=== PATIENT | male | born 1935 | race Caucasian/White ===

== ENCOUNTER 2017-10-09 16:18 | Inpatient (IN) ==
--- NOTE | 2017-10-09 16:44 | Emergency Department Note ---
Disposition Clinical Impression: Generalized weakness Disposition: Admitted As Inpatient Condition: Fair Referrals: Himanshu Rodrigues, POWERTRAIN ENGINEER [Primary Care Provider] - Forms: ED Satisfaction Letter General Adult HPI - General Chief complaint: ED Weakness Stated complaint: PVCs Time Seen by Provider: 10/09/17 16:24 Source: patient Nursing Notes Reviewed: Yes Vital Signs Reviewed: Yes - History of Present Illness HPI Narrative: 81 yo M c PMHx of CAD, Anxiety, HTN, stage I lung CA s/p lobectomy, Vertigo, who reports to the ED c/o generalized weakness x 1 month. Patient reports that he had been feeling generally weak since August. He was seen at Urgent care this past Thursday and was worked up with CBC, BMP, and CXR all of which was unremarkable. Patient went to PCP today to follow up from that urgent care visit and because patient continues to feel weak. EKG was performed at PCPs office which showed PVCs. Patient is very anxious per and she reports his nerves have been shot as of late. He saw his spychiatrist around the time the weakeness began at that time his alprazolam and paxil prescriptions were increased. Patient is also being treated for Vertigo. Patient was started on meclazine, but med made him tired so only took once. Has been treat vertigo with PT with much improvement. Patient denies fever, chest pain, abd pain, N, V , D. Patient has issues with constipation and is on a stool softner. Patient denies numbness tingling, focal weakness. Patient does reports some dysuria occasionally. Onset (ago): week(s) (4) Pain Scale: 0 - Related Data Home Medications Medication Instructions Recorded Confirmed Clopidogrel [Plavix] 75 mg PO DAILY 12/21/15 04/28/17 Dorzolamide/Timolol [Cosopt] 1 drop BOTH EYES BID 12/21/15 04/28/17 Finasteride [Proscar] 5 mg PO DAILY 12/21/15 04/28/17 Ketoconazole 2% CRM [Nizoral Cream] 1 appl TP BID PRN 12/21/15 04/28/17 Multivit-Min/Folic/Vit K/Lycop [Hm 1 each PO DAILY 12/21/15 04/28/17 Mens 50 Plus Adv One Daily] Omeprazole [PriLOSEC] 40 mg PO DAILY 12/21/15 04/28/17 Pravastatin Sodium [Pravachol] 40 mg PO DAILY 12/21/15 04/28/17 Tamsulosin [Flomax] 0.4 mg PO DAILY 12/21/15 04/28/17 ALPRAZolam [Xanax 0.5 MG Tablet] 0.25 mg PO BID PRN 08/26/16 04/28/17 Aripiprazole [Abilify] 5 mg PO DAILY 08/26/16 04/28/17 Echinacea 760 mg PO BID PRN 08/26/16 04/28/17 Ferrous Sulfate [Iron] 325 mg PO BID 08/26/16 04/28/17 Nitroglycerin [Nitrostat] 0.4 mg SL PRN PRN 08/26/16 04/28/17 Paroxetine [Paxil] 20 mg PO DAILY 08/26/16 04/28/17 Sennosides [Senna] 8.6 mg PO BID 08/26/16 04/28/17 Vit A/Vit C/Vit E/Zinc/Copper 1 each PO BID 08/26/16 04/28/17 [Preservision Areds Tablet] Aspirin 81 mg PO DAILY 11/20/16 04/28/17 Docusate Sodium [Dok] 100 mg PO BID PRN 11/20/16 04/28/17 Oxygen 2 each NS HS 11/20/16 04/28/17 Hydrochlorothiazide [Microzide] 12.5 mg PO 3XW 04/28/17 04/28/17 Previous Rx's Medication Instructions Recorded Mirtazapine [Remeron] 30 mg PO HS #30 tablet 12/22/15 Allergies Allergy/AdvReac Type Severity Reaction Status Date / Time No Known Allergies Allergy Verified 10/09/17 16:23 Review of Systems: As Per HPI Past Medical History - Past Medical History Medical history: Reports: cancer, coronary artery disease, GERD, hypertension, myocardial infarction Psychiatric history: Reports: anxiety - Social History Smoking Status: Former smoker Smokeless Tobacco Status: No Alcohol use: Reports: none Drug use: Reports: none Physical Exam - General Limitations: no limitations General appearance: alert, in no apparent distress - Head Head exam: atraumatic, normocephalic - Eye Eye exam: Present: PERRL, EOMI, nystagmus - ENT ENT exam: normal oropharynx, mucous membranes moist - Neck Neck exam: Present: full ROM, trachea midline - Chest Chest inspection: Present: symmetric chest wall rise. Absent: tenderness - Respiratory Respiratory exam: Present: normal lung sounds bilaterally. Absent: respiratory distress - Cardiovascular Cardiovascular exam: Present: regular rate, normal heart sounds - Abdominal Exam Abdominal exam: Present: soft, Non-Tender - Extremities Exam Extremities exam: Present: full ROM, tenderness - Neurological Exam Neurological exam: Present: alert, oriented X3, CN II-XII intact, motor sensory deficit - Psychiatric Psychiatric exam: Present: anxious - Skin Skin exam: Present: warm, dry Course Course Narrative: Will work up patient for PVCs and generalized weakness. CBC, BMP. TSH, Troponin, CXR, UA. - Reevaluation(s) Reevaluation #1: All lab work and CXR are normal. UA still pending. Reevaluation #2: UA normal, patient still feels weak. Not able to manage at home. - Consultations Consultation #1: Discussed case with admitting hospitalist who agreed to accept the patient. Vital Signs Temperature 97.8 F 10/09/17 16:19 Pulse Rate 81 10/09/17 16:19 Respiratory Rate 16 10/09/17 16:19 Blood Pressure 109/77 10/09/17 16:19 O2 Sat by Pulse Oximetry 96 10/09/17 16:19 Temperature 97.8 F 10/09/17 16:19 Pulse Rate 69 10/09/17 18:22 Respiratory Rate 18 10/09/17 18:22 Blood Pressure 160/96 10/09/17 18:22 O2 Sat by Pulse Oximetry 96 10/09/17 18:22 Oxygen Delivery Oxygen Delivery Room Air Medical Decision Making - [facility] Narrative Medical decision making narrative: Patient feeling generalized weakness for about a month. Concern for cardiac cause with extensive caridac history and new onset PVCs. Will admit for further work up. Patient of Dr. Mills Cardiology. - Lab Data Lab results reviewed: Yes I reviewed the patient's lab results. Result diagrams: 10/09/17 16:28 10/09/17 16:28 Lab Results 10/09/17 10/09/17 10/09/17 Range/Units 16:28 16:28 16:28 WBC 5.2 (4.3-11.1) K/mcL RBC 4.10 L (4.19-5.50) M/mcL Hgb 13.2 (12.9-16.9) g/dL Hct 39.5 (37.5-50.1) % MCV 96.3 (83.0-100.0) fL MCH 32.2 (28.0-33.3) pg MCHC 33.4 (31.6-35.5) g/dL RDW 13.0 (11.5-14.5) % Plt Count 179 (140-400) K/mcL MPV 9.5 (9.4-12.4) fL Immature Gran % 0.4 (0-4) % Seg Neutrophils % 67.5 % Lymphocytes % 22.7 % Monocytes % 6.7 % Eosinophils % 1.9 % Basophils % 0.8 % Neutrophils # 3.5 (1.6-8.9) K/mcL Lymphocytes # 1.2 (0.6-4.6) K/mcL Monocytes # 0.4 (0.0-1.3) K/mcL Eosinophils # 0.1 (0.0-0.6) K/mcL Basophils # 0.0 (0.0-0.2) K/mcL PT 11.5 (9.4-12.1) Seconds INR 1.1 APTT 28.8 (26.0-36.0) Seconds Sodium 139 (136-145) mEq/L Potassium 3.6 (3.5-5.1) mEq/L Chloride 106 (98-107) mEq/L Carbon Dioxide 25 (23-29) mEq/L BUN 13 (8-23) mg/dL Creatinine 0.69 L (0.70-1.30) mg/dL Est GFR ( Amer) > 60 (> 60) Est GFR (Non-Af Amer) > 60 (> 60) BUN/Creatinine Ratio 19 (6-26) Glucose 125 H (70-105) mg/dL Calculated Osmolality 290 (280-300) Calcium 9.0 (8.6-10.3) mg/dL Troponin I < 0.03 (< 0.04) ng/mL TSH 1.123 (0.340-5.600) mcIU/mL Urine Color (Yellow) Urine Clarity (Clear) Urine pH (5.0-8.0) pH Units Ur Specific [place] (1.010-1.025) Urine Protein (Neg-Trace) mg/dL Urine Glucose (UA) (Normal) mg/dL Urine Ketones (Negative) mg/dL Urine Blood (Negative) Urine Nitrite (Negative) Urine Bilirubin (Negative) Urine Urobilinogen (Normal) mg/dL Ur Leukocyte Esterase (Negative) Ur Culture Indicated? (NO) 10/09/17 Range/Units 19:08 WBC (4.3-11.1) K/mcL RBC (4.19-5.50) M/mcL Hgb (12.9-16.9) g/dL Hct (37.5-50.1) % MCV (83.0-100.0) fL MCH (28.0-33.3) pg MCHC (31.6-35.5) g/dL RDW (11.5-14.5) % Plt Count (140-400) K/mcL MPV (9.4-12.4) fL Immature Gran % (0-4) % Seg Neutrophils % % Lymphocytes % % Monocytes % % Eosinophils % % Basophils % % Neutrophils # (1.6-8.9) K/mcL Lymphocytes # (0.6-4.6) K/mcL Monocytes # (0.0-1.3) K/mcL Eosinophils # (0.0-0.6) K/mcL Basophils # (0.0-0.2) K/mcL PT (9.4-12.1) Seconds INR APTT (26.0-36.0) Seconds Sodium (136-145) mEq/L Potassium (3.5-5.1) mEq/L Chloride (98-107) mEq/L Carbon Dioxide (23-29) mEq/L BUN (8-23) mg/dL Creatinine (0.70-1.30) mg/dL Est GFR ( Amer) (> 60) Est GFR (Non-Af Amer) (> 60) BUN/Creatinine Ratio (6-26) Glucose (70-105) mg/dL Calculated Osmolality (280-300) Calcium (8.6-10.3) mg/dL Troponin I (< 0.04) ng/mL TSH (0.340-5.600) mcIU/mL Urine Color Yellow (Yellow) Urine Clarity Clear (Clear) Urine pH 7.0 (5.0-8.0) pH Units Ur Specific [place] 1.012 (1.010-1.025) Urine Protein Negative (Neg-Trace) mg/dL Urine Glucose (UA) Normal (Normal) mg/dL Urine Ketones Negative (Negative) mg/dL Urine Blood Negative (Negative) Urine Nitrite Negative (Negative) Urine Bilirubin Negative (Negative) Urine Urobilinogen Normal (Normal) mg/dL Ur Leukocyte Esterase Negative (Negative) Ur Culture Indicated? NO (NO) - Radiology Data Radiology results reviewed: Yes I reviewed the patient's radiology results.
[2017-10-09 17:17] LABS: Basophils % 0.8 %; Eosinophils # 0.1 K/mcL (0.0-0.6); Eosinophils % 1.9 %; Hematocrit 39.5 % (37.5-50.1); Hemoglobin 13.2 g/dL (12.9-16.9); Immature Granulocytes % 0.4 % (0-4); Lymphocytes # 1.2 K/mcL (0.6-4.6); Lymphocytes % 22.7 %; Mean Corpuscular HGB Conc 33.4 g/dL (31.6-35.5); Mean Corpuscular Hemoglobin 32.2 pg (28.0-33.3); Mean Corpuscular Volume 96.3 fL (83.0-100.0); Mean Platelet Volume 9.5 fL (9.4-12.4); Monocytes # 0.4 K/mcL (0.0-1.3); Monocytes % 6.7 %; Neutrophils # 3.5 K/mcL (1.6-8.9); Platelet Count 179 K/mcL (140-400); Segmented Neutrophils % 67.5 %
[2017-10-09 17:22] LABS: INR 1.1; Prothrombin Time 11.5 Seconds (9.4-12.1)
[2017-10-09 17:25] LABS: Activated Partial Thrombo Time 28.8 Seconds (26.0-36.0)
[2017-10-09 17:39] LABS: Troponin I < 0.03 ng/mL (< 0.04)
[2017-10-09 17:40] LABS: BUN/Creatinine Ratio 19 (6-26); Blood Urea Nitrogen 13 mg/dL (8-23); Carbon Dioxide 25 mEq/L (23-29); Chloride 106 mEq/L (98-107); Glucose 125 mg/dL (70-105); Osmolality,Calculated 290 (280-300); Potassium 3.6 mEq/L (3.5-5.1); Sodium 139 mEq/L (136-145); eGFR For African Americans > 60 (> 60); eGFR For Non-African Americans > 60 (> 60)
[2017-10-09 17:52] LABS: Thyroid Stimulating Hormone 1.123 mcIU/mL (0.340-5.600)
[2017-10-09 19:39] LABS: Bilirubin,Urine Negative (Negative); Blood,Urine Negative (Negative); Clarity,Urine Clear (Clear); Color,Urine Yellow (Yellow); Glucose,Urine (UA) Normal (Normal); Ketones,Urine Negative (Negative); Leukocyte Esterase,Urine Negative (Negative); Nitrite,Urine Negative (Negative); Protein,Urine Negative (Neg-Trace); Specific Gravity,Urine 1.012 (1.010-1.025); Urobilinogen,Urine Normal (Normal)
--- NOTE | 2017-10-09 22:05 | Emergency Department Note ---
Disposition Clinical Impression: Generalized weakness Disposition: Admitted As Inpatient Condition: Fair Referrals: Himanshu Rodrigues, PROJECTS MANAGER [Primary Care Provider] - Weakness HPI - General Chief complaint: ED Weakness Stated complaint: PVCs Time Seen by Provider: 10/09/17 16:24 Source: patient Limitations: no limitations - History of Present Illness Pain Scale: 0 - Related Data Home Medications Medication Instructions Recorded Confirmed Clopidogrel [Plavix] 75 mg PO DAILY 12/21/15 10/09/17 Finasteride [Proscar] 5 mg PO DAILY 12/21/15 10/09/17 Ketoconazole 2% CRM [Nizoral Cream] 1 appl TP BID PRN 12/21/15 10/09/17 Multivit-Min/Folic/Vit K/Lycop [Hm 1 each PO DAILY 12/21/15 10/09/17 Mens 50 Plus Adv One Daily] Omeprazole [PriLOSEC] 40 mg PO DAILY 12/21/15 10/09/17 Pravastatin Sodium [Pravachol] 40 mg PO DAILY 12/21/15 10/09/17 ALPRAZolam [Xanax 0.5 MG Tablet] 0.5 mg PO QAM 08/26/16 10/09/17 Aripiprazole [Abilify] 5 mg PO DAILY 08/26/16 10/09/17 Echinacea 760 mg PO BID PRN 08/26/16 10/09/17 Ferrous Sulfate [Iron] 325 mg PO BID 08/26/16 10/09/17 Nitroglycerin [Nitrostat] 0.4 mg SL PRN PRN 08/26/16 10/09/17 Paroxetine [Paxil] 30 mg PO DAILY 08/26/16 10/09/17 Sennosides [Senna] 8.6 mg PO BID 08/26/16 10/09/17 Vit A/Vit C/Vit E/Zinc/Copper 1 each PO BID 08/26/16 10/09/17 [Preservision Areds Tablet] Aspirin 81 mg PO DAILY 11/20/16 10/09/17 Docusate Sodium [Dok] 100 mg PO BID PRN 11/20/16 10/09/17 Oxygen 2 each NS HS 11/20/16 10/09/17 Hydrochlorothiazide [Microzide] 12.5 mg PO 3XW 04/28/17 10/09/17 ALPRAZolam [Xanax 0.25 MG Tablet] 0.25 mg PO DAILY PRN 10/09/17 10/09/17 Dorzolamide [Trusopt] 1 drop BOTH EYES TID 10/09/17 10/09/17 Tamsulosin [Flomax] 0.4 mg PO DAILY 10/09/17 10/09/17 Previous Rx's Medication Instructions Recorded Mirtazapine [Remeron] 30 mg PO HS #30 tablet 12/22/15 Allergies Allergy/AdvReac Type Severity Reaction Status Date / Time No Known Allergies Allergy Verified 10/09/17 16:23 Past Medical History - Past Medical History Medical history: Reports: cancer, coronary artery disease, GERD, hypertension, myocardial infarction Psychiatric history: Reports: anxiety - Social History Smoking Status: Former smoker Smokeless Tobacco Status: No Alcohol use: Reports: none Drug use: Reports: none Physical Exam - General Limitations: no limitations General appearance: alert, in no apparent distress Course Vital Signs Temperature 97.8 F 10/09/17 16:19 Pulse Rate 81 10/09/17 16:19 Respiratory Rate 16 10/09/17 16:19 Blood Pressure 109/77 10/09/17 16:19 O2 Sat by Pulse Oximetry 96 10/09/17 16:19 Temperature 98 F 10/09/17 21:47 Pulse Rate 68 10/09/17 21:47 Respiratory Rate 18 10/09/17 21:47 Blood Pressure 119/71 10/09/17 21:47 O2 Sat by Pulse Oximetry 95 10/09/17 21:47 Oxygen Delivery Oxygen Delivery Room Air Weakness - Lab Data Result diagrams: 10/09/17 16:28 10/09/17 16:28 Lab Results 10/09/17 10/09/17 10/09/17 Range/Units 16:28 16:28 16:28 WBC 5.2 (4.3-11.1) K/mcL RBC 4.10 L (4.19-5.50) M/mcL Hgb 13.2 (12.9-16.9) g/dL Hct 39.5 (37.5-50.1) % MCV 96.3 (83.0-100.0) fL MCH 32.2 (28.0-33.3) pg MCHC 33.4 (31.6-35.5) g/dL RDW 13.0 (11.5-14.5) % Plt Count 179 (140-400) K/mcL MPV 9.5 (9.4-12.4) fL Immature Gran % 0.4 (0-4) % Seg Neutrophils % 67.5 % Lymphocytes % 22.7 % Monocytes % 6.7 % Eosinophils % 1.9 % Basophils % 0.8 % Neutrophils # 3.5 (1.6-8.9) K/mcL Lymphocytes # 1.2 (0.6-4.6) K/mcL Monocytes # 0.4 (0.0-1.3) K/mcL Eosinophils # 0.1 (0.0-0.6) K/mcL Basophils # 0.0 (0.0-0.2) K/mcL PT 11.5 (9.4-12.1) Seconds INR 1.1 APTT 28.8 (26.0-36.0) Seconds Sodium 139 (136-145) mEq/L Potassium 3.6 (3.5-5.1) mEq/L Chloride 106 (98-107) mEq/L Carbon Dioxide 25 (23-29) mEq/L BUN 13 (8-23) mg/dL Creatinine 0.69 L (0.70-1.30) mg/dL Est GFR ( Amer) > 60 (> 60) Est GFR (Non-Af Amer) > 60 (> 60) BUN/Creatinine Ratio 19 (6-26) Glucose 125 H (70-105) mg/dL Calculated Osmolality 290 (280-300) Calcium 9.0 (8.6-10.3) mg/dL Magnesium 2.0 (1.6-2.6) mg/dL Troponin I < 0.03 (< 0.04) ng/mL TSH 1.123 (0.340-5.600) mcIU/mL Urine Color (Yellow) Urine Clarity (Clear) Urine pH (5.0-8.0) pH Units Ur Specific [place] (1.010-1.025) Urine Protein (Neg-Trace) mg/dL Urine Glucose (UA) (Normal) mg/dL Urine Ketones (Negative) mg/dL Urine Blood (Negative) Urine Nitrite (Negative) Urine Bilirubin (Negative) Urine Urobilinogen (Normal) mg/dL Ur Leukocyte Esterase (Negative) Ur Culture Indicated? (NO) 10/09/17 Range/Units 19:08 WBC (4.3-11.1) K/mcL RBC (4.19-5.50) M/mcL Hgb (12.9-16.9) g/dL Hct (37.5-50.1) % MCV (83.0-100.0) fL MCH (28.0-33.3) pg MCHC (31.6-35.5) g/dL RDW (11.5-14.5) % Plt Count (140-400) K/mcL MPV (9.4-12.4) fL Immature Gran % (0-4) % Seg Neutrophils % % Lymphocytes % % Monocytes % % Eosinophils % % Basophils % % Neutrophils # (1.6-8.9) K/mcL Lymphocytes # (0.6-4.6) K/mcL Monocytes # (0.0-1.3) K/mcL Eosinophils # (0.0-0.6) K/mcL Basophils # (0.0-0.2) K/mcL PT (9.4-12.1) Seconds INR APTT (26.0-36.0) Seconds Sodium (136-145) mEq/L Potassium (3.5-5.1) mEq/L Chloride (98-107) mEq/L Carbon Dioxide (23-29) mEq/L BUN (8-23) mg/dL Creatinine (0.70-1.30) mg/dL Est GFR ( Amer) (> 60) Est GFR (Non-Af Amer) (> 60) BUN/Creatinine Ratio (6-26) Glucose (70-105) mg/dL Calculated Osmolality (280-300) Calcium (8.6-10.3) mg/dL Magnesium (1.6-2.6) mg/dL Troponin I (< 0.04) ng/mL TSH (0.340-5.600) mcIU/mL Urine Color Yellow (Yellow) Urine Clarity Clear (Clear) Urine pH 7.0 (5.0-8.0) pH Units Ur Specific [place] 1.012 (1.010-1.025) Urine Protein Negative (Neg-Trace) mg/dL Urine Glucose (UA) Normal (Normal) mg/dL Urine Ketones Negative (Negative) mg/dL Urine Blood Negative (Negative) Urine Nitrite Negative (Negative) Urine Bilirubin Negative (Negative) Urine Urobilinogen Normal (Normal) mg/dL Ur Leukocyte Esterase Negative (Negative) Ur Culture Indicated? NO (NO) Attestation Statement - Attestation Attestation: I, Michael Maurer, examined this patient and my medical decision-making was reviewed with the ACCOUNTANT CONTROLLER/PA/Advanced Practice Nurse/Resident Physician. I agree with the documented findings, disposition and treatment plan as described except to the extent set forth below. 81-year-old male presents emergency Department with concerns of increased weakness over the past 1-2 weeks. Patient was initially seen at an urgent care , had a urinalysis that was negative for infection as well as laboratory values which were largely within normal limits. Patient was reevaluated by his primary care provider who recommended the patient be evaluated in the emergency department for further evaluation of his weakness. Patient states he becomes extremely dyspneic with minimal exertion. He had similar symptoms prior to his previous heart catheterization. Patient follows Dr. Mills for cardiology. Patient had an negative initial troponin and EKG not show evidence of STEMI. Patient will be admitted to the hospitalist for further care and evaluation of his weakness and for further evaluation of cardiac disease.
[2017-10-10] MEDS ORDERED: Naloxone 0.4 MG/ML INJ IVP PRN (01:57)
[2017-10-10] MEDS ORDERED: Acetaminophen 325 MG TABLET PO PRN (01:57)
[2017-10-10] MEDS ORDERED: Nitroglycerin 0.4 MG TAB.SUBL SL PRN (02:04)
[2017-10-10] MEDS ORDERED: ALPRAZolam 0.25 MG TABLET PO PRN (02:04)
[2017-10-10] MEDS ORDERED: ALPRAZolam 0.5 MG TABLET PO SCH (02:05)
[2017-10-10] MEDS ORDERED: OXYGEN NS SCH (02:15)
[2017-10-10] MEDS ORDERED: Mirtazapine 15 MG TABLET PO SCH (02:15)
--- NOTE | 2017-10-10 02:15 | Internal Med History&Physical ---
<TalibJaninefrances - Last Filed: 10/10/17 05:50> Date of Encounter: 10/10/17 Time of Encounter: 02:13 Internal Medicine - H&P: HPI Chief complaint: weakness Admitted From: Emergency Dept Plans for Post Hospital Care: Home History of present illness: Mr. 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 Patient arrived to the ED with his with chief complaint of generalized weakness that started a few weeks ago. She states that he saw his PCP, who made changes to his medications. Patient continued to feel week despite outpatient physical therapy. Today patient and his went urgent care where they did and EKG that showed frequent PVCs. They were sent from urgent care to the ER for further workup and evaluation. Patient states that his only complaint is generalized weakness. He denies nausea, vomiting, diarrhea, fever , chills, chest pain. He does report shortness of breath with minimal exertion. He denies hematuria, hematochezia, melena. Past Med Surg Social Fam HX - Past Medical History Medical history: cancer, coronary artery disease, GERD, hypertension, myocardial infarction Psychiatric history: anxiety - Past Surgical History Surgical History: knee replacement - Social History Smoking Status: Former smoker Smokeless Tobacco Status: No Alcohol use: none Drug use: none - Family History Father Hx Family Neurologic Disorders: Yes (Stroke) Internal Medicine - H&P: Meds Clopidogrel [Plavix] 75 mg PO DAILY 12/21/15 [History] Finasteride [Proscar] 5 mg PO DAILY 12/21/15 [History] Ketoconazole 2% CRM [Nizoral Cream] 1 appl TP BID PRN 12/21/15 [History] Multivit-Min/Folic/Vit K/Lycop [Hm Mens 50 Plus Adv One Daily] 1 each PO DAILY 12/21/15 [History] Omeprazole [PriLOSEC] 40 mg PO DAILY 12/21/15 [History] Pravastatin Sodium [Pravachol] 40 mg PO DAILY 12/21/15 [History] Mirtazapine [Remeron] 30 mg PO HS #30 tablet 12/22/15 [Rx] ALPRAZolam [Xanax 0.5 MG Tablet] 0.5 mg PO QAM 08/26/16 [History] Aripiprazole [Abilify] 5 mg PO DAILY 08/26/16 [History] Echinacea 760 mg PO BID PRN 08/26/16 [History] Ferrous Sulfate [Iron] 325 mg PO BID 08/26/16 [History] Nitroglycerin [Nitrostat] 0.4 mg SL PRN PRN 08/26/16 [History] Paroxetine [Paxil] 30 mg PO DAILY 08/26/16 [History] Sennosides [Senna] 8.6 mg PO BID 08/26/16 [History] Vit A/Vit C/Vit E/Zinc/Copper [Preservision Areds Tablet] 1 each PO BID [History] Aspirin 81 mg PO DAILY 11/20/16 [History] Docusate Sodium [Dok] 100 mg PO BID PRN 11/20/16 [History] Oxygen 2 each NS HS 11/20/16 [History] Hydrochlorothiazide [Microzide] 12.5 mg PO 3XW 04/28/17 [History] ALPRAZolam [Xanax 0.25 MG Tablet] 0.25 mg PO DAILY PRN 10/09/17 [History] Dorzolamide [Trusopt] 1 drop BOTH EYES TID 10/09/17 [History] Tamsulosin [Flomax] 0.4 mg PO DAILY 10/09/17 [History] 3 Allergy/AdvReac Type Severity Reaction Status Date / Time No Known Allergies Allergy Verified 10/09/17 16:23 All Systems PM: A 10-system review of systems was performed and is negative for pertinent findings except as documented above in the HPI. - Constitutional Constitutional: as per HPI - Constitutional Vitals: Temp Pulse Resp BP Pulse Ox 98 F 68 18 119/71 95 10/09/17 21:47 10/09/17 21:47 10/09/17 21:47 10/09/17 21:47 10/09/17 21:47 General appearance: Present: A&O X 3, pleasant, no acute distress Exam: Patient has trouble hearing - Head Head exam: Present: atraumatic, normocephalic - Neck Neck exam general surgery: Present: supple, trachea midline - Respiratory Respiratory exam: Present: CTAB - Cardiovascular Cardiovascular exam: Present: RRR, +S1, +S2 - GI/Abdominal GI/Abdominal exam: Present: normal bowel sounds, soft. Absent: distended, tenderness - Extremities Exam Extremities exam: Absent: cyanotic, pedal edema - Neurological Exam Neurological exam: Present: alert, oriented X3, no focal deficits Additional comments: Pupils equally reactive to light, slightly decreased muscle strength on bilateral upper extremities, no facial drooping or slurred speech present, patient had difficulty sitting up on the bed, and difficulty with hand eye coordination movements. - Psychiatric Psychiatric exam: Present: normal affect, normal mood - Skin Additional comments: Skin dry, intact Internal Med - H&P Results - Labs CBC & Chem 7: 10/09/17 16:28 10/09/17 16:28 - Assessment and plan (1) Generalized weakness Current Visit: Yes Status: Acute Assessment and plan: Patient has been having generalized weakness for several weeks. Consult to PT/OT (2) Squamous cell lung cancer Current Visit: No Status: Acute Assessment and plan: Status post right upper lobectomy, follows with Dr. Crouch outpatient Qualifiers: Laterality: right Qualified Code(s): C34.91 - Malignant neoplasm of unspecified part of right bronchus or lung (3) Hypertension Current Visit: Yes Status: Acute Assessment and plan: Continue home medications Qualifiers: Hypertension type: unspecified Qualified Code(s): I10 - Essential (primary ) hypertension (4) Anxiety Current Visit: No Status: Chronic Assessment and plan: Continue home medications (5) DVT prophylaxis Current Visit: Yes Status: Acute Assessment and plan: Heparin SQ (6) PVCs (premature ventricular contractions) Current Visit: Yes Status: Acute Assessment and plan: She went urgent care were EKG was done that showed frequent PVCs. He was sent to the emergency department for further management and workup. Labs in the emergency room including electrolytes, troponin, urinalysis were all within normal limits. Plan: routine vitals checks continue telemetry replace electrolytes as needed consult to cardiology if warranted based on telemetry will trend troponins. - Time Spent With Patient Total time spent is greater than 50% in coordination of care (as documented) at patient's floor/unit and/or counseling patient: <Hoang Nice - Last Filed: 10/10/17 06:20> Date of Encounter: 10/10/17 Time of Encounter: 03:50 - Constitutional Constitutional: weakness, no falls - EENT Eyes: no blurry vision, no change in vision Ears: no tinnitus - Cardiovascular Cardiovascular ROS IM: no chest pain, no diaphoresis, no dyspnea, no dyspnea on exertion - Respiratory Respiratory: no cough, no hemoptysis - Gastrointestinal Gastrointestinal: no diarrhea, no hematemesis, no hematochezia, no melena, no vomiting - Genitourinary Genitourinary ROS male: no dysuria, no flank pain, no hematuria - Musculoskeletal Musculoskeletal ROS IM: arthralgias, back pain - Integumentary Integumentary IM: no rash, no jaundice - Neurological Neurological ROS: no disequilibrium, no dizziness, no focal weakness, no frequent falls - Psychiatric Psychiatric: anxiety, no depression - Endocrine Endocrine IM: no polydipsia, no polyuria - Constitutional Vitals: Temp Pulse Resp BP Pulse Ox 97.8 F 63 18 97/60 99 10/10/17 02:51 10/10/17 02:51 10/10/17 02:51 10/10/17 02:52 10/10/17 02:51 General appearance: Present: A&O X 3, no acute distress - Head Head exam: Present: normal inspection - Eye Eye exam: Present: PERRL. Absent: scleral icterus - Respiratory Respiratory exam: Present: CTAB. Absent: chest wall tenderness, rales, rhonchi , wheezes - Cardiovascular Cardiovascular exam: Present: RRR, +S1, +S2. Absent: diastolic murmur, systolic murmur - GI/Abdominal GI/Abdominal exam: Present: normal bowel sounds, soft. Absent: hepatomegaly, splenomegaly, tenderness - Extremities Exam Extremities exam: Absent: calf tenderness - Back Exam Back exam: Absent: CVA tenderness (L), CVA tenderness (R) - Neurological Exam Neurological exam: Present: no focal deficits - Psychiatric Psychiatric exam: Present: flat affect - Skin Skin exam: Absent: rash Internal Med - H&P Results - Labs CBC & Chem 7: 10/09/17 16:28 10/10/17 05:14 Labs: BMP 10/10/17 05:14 Sodium 141 Potassium 4.0 Chloride 107 Carbon Dioxide 27 BUN 13 Creatinine 0.71 Glucose 95 Calcium 8.9 - EKG Data -: EKG Interpreted by Myself EKG shows normal: sinus rhythm - EKG Data Prior EKG available for review: yes EKG comments: 10/10/17 06:13 NSR; no PVC's noted on EKG obtained in ER; PVC's on prior EKG noted. - Attending Attestation I discussed the patient [place], past medical history, review of systems, exam findings, and lab data with Dr. Mayers. I then saw and examined patient independently. I had a long discussion with patient's and minimal conversation with patient as he was quite somnolent and unable to carry conversation when I saw him. His states that he has had multiple medication changes lately, mostly increasing his sedating medications. I reviewed his medication list and note that he is on multiple medications which can be and are sedating. I recommend withholding and decreasing the doses of multiple medications and watching him. I suspect most of his symptoms are due to medication effects and polypharmacy. In particular, his states that his Xanax doses have been increasing significantly lately. I recommended cutting the dose quite a bit and using a low-dose on a PRN basis. She was very reluctant for me to cut the dose back, but I informed her we are not stopping it abruptly but simply cutting the dose down and monitoring his symptoms and effects. His exam and laboratory data are otherwise unremarkable. I agree with the therapy assessments and consults. I anticipate he should be able to go home soon with medication changes noted above. Other than my comments noted above and physical exam findings, I agree with Dr. Mayers' assessment and plan. - Assessment and plan (1) Anxiety Current Visit: No Status: Chronic (2) Squamous cell lung cancer Current Visit: No Status: Acute Qualifiers: Laterality: right Qualified Code(s): C34.91 - Malignant neoplasm of unspecified part of right bronchus or lung (3) Generalized weakness Current Visit: Yes Status: Acute (4) DVT prophylaxis Current Visit: Yes Status: Acute (5) Hypertension Current Visit: Yes Status: Acute Qualifiers: Hypertension type: unspecified Qualified Code(s): I10 - Essential (primary ) hypertension (6) PVCs (premature ventricular contractions) Current Visit: Yes Status: Acute - Time Spent With Patient Total time spent is greater than 50% in coordination of care (as documented) at patient's floor/unit and/or counseling patient:
[2017-10-10] MEDS: *HR* Heparin 5,000 UNIT/ML VIAL SQ SCH ×3 (05:43→21:29)
[2017-10-10 06:07] LABS: BUN/Creatinine Ratio 18 (6-26); Blood Urea Nitrogen 13 mg/dL (8-23); Calcium 8.9 mg/dL (8.6-10.3); Carbon Dioxide 27 mEq/L (23-29); Chloride 107 mEq/L (98-107); Glucose 95 mg/dL (70-105); Osmolality,Calculated 292 (280-300); Sodium 141 mEq/L (136-145); eGFR For African Americans > 60 (> 60); eGFR For Non-African Americans > 60 (> 60)
[2017-10-10] MEDS ORDERED: ARIPiprazole 5 MG TABLET PO SCH (09:00)
[2017-10-10] MEDS: Finasteride 5 MG TABLET PO SCH (10:26)
[2017-10-10] MEDS: Sennosides 8.6 MG TABLET PO SCH ×2 (10:26→21:29)
[2017-10-10] MEDS: Aspirin 81 MG TAB.CHEW PO SCH (10:27)
--- NOTE | 2017-10-10 12:45 | Internal Med Progress Note ---
Date of Encounter: 10/10/17 Time of Encounter: 10:30 - Assessment and plan (1) Anxiety Current Visit: Yes Status: Chronic Assessment and plan: Continue Xanax and Paxil, Abilify, Remeron at bedtime. (2) Squamous cell lung cancer Current Visit: No Status: Acute Assessment and plan: RUL lung cancer, PET verified in August,. S/p lobectomy. Follows with oncology outpatient, Dr. Crouch. Qualifiers: Laterality: right Qualified Code(s): C34.91 - Malignant neoplasm of unspecified part of right bronchus or lung (3) Generalized weakness Current Visit: Yes Status: Acute Assessment and plan: Patient has been having generalized weakness for several weeks. Pt was undergoing vestibular rehab at [facility] for vertigo. He reports having to ambulate with a walker and GASCA after a short distance, even with a walker. Pt states that he is old and weakness is part of being old, does not want to do PT. Suspect that weakness is due to deconditioning and sedentary lifestyle since there is no alteration in labs, vitals, and EKG is WNL. Will speak with who is primary caregiver. OT recommends SNF after discharge. Monitor for safety and falls. Walker in room, utilize when up. (4) DVT prophylaxis Current Visit: Yes Status: Acute Assessment and plan: Heparin SQ TID. (5) Hypertension Current Visit: Yes Status: Acute Assessment and plan: Chronic. Well controlled,continue home medications. Qualifiers: Hypertension type: unspecified Qualified Code(s): I10 - Essential (primary ) hypertension (6) PVCs (premature ventricular contractions) Current Visit: Yes Status: Acute Assessment and plan: Pt had EKG x 2 on 10/09, both NSR. Earliest one from shows NSR with frequent PVCs and RBBB. Repeat shows Sinus rhythm with rate of 78, DE interval 204, QRS 145, QT/QTc 374/ 407. No PVCs noted. Pt denies chest pain, SOB, palpitations. Rate is WNL, troponins negative x 3, TSH WNL. Likely not the cause for his weakness. continue telemetry replace electrolytes if needed - Time Spent With Patient Total time spent is greater than 50% in coordination of care (as documented) at patient's floor/unit and/or counseling patient: less than 15 minutes - Subjective Interval history: Pt was seen and assessed at bedside at 1030. He is alert, awake, affect is flat. He states that he is 82 years old and that he is not going to get any stronger than he is right now and does not want to do PT. Primary RN states that is his caregiver and that I should speak with her. He denies headache , blurred vision, URI symptoms or ear pain, no chest pain or SOB. No n/v/d, or abdominal pain. He states that for about the last month he has to use a walker and that after a short distance he is winded and needs to rest. - Constitutional Vitals: Temp Pulse Resp BP Pulse Ox 98.4 F 67 16 129/81 93 10/10/17 11:20 10/10/17 11:20 10/10/17 11:20 10/10/17 11:20 10/10/17 11:20 General appearance: Present: cooperative, A&O X 3, pleasant, no acute distress, answers questions appropriately - Head Head exam: Present: atraumatic, normal inspection, normocephalic - Eye Eye exam: Present: normal appearance, conjuntiva pink, sclera anicteric - Neck Neck exam general surgery: Present: supple, trachea midline. Absent: lymphadenopathy, tenderness - Respiratory Respiratory exam: Present: chest wall tenderness, CTAB. Absent: accessory muscle use, rales, rhonchi, wheezes - Cardiovascular Cardiovascular exam: Present: RRR, +S1, +S2. Absent: diastolic murmur, gallop, rubs, systolic murmur - GI/Abdominal GI/Abdominal exam: Present: normal bowel sounds, soft. Absent: distended, hepatomegaly, tenderness - Extremities Exam Extremities exam: Present: normal capillary refill, normal inspection, warm, radial pulses palpable and symmetrical. Absent: calf tenderness, cyanotic, pedal edema, tenderness - Neurological Exam Neurological exam: Present: alert, oriented X3, no focal deficits. Absent: facial droop, speech deficit - Skin Skin exam: Present: dry, intact, normal color, warm. Absent: rash Internal Medicine: Result - Labs CBC & Chem 7: 10/09/17 16:28 10/10/17 05:14 Labs: BMP 10/10/17 05:14 Sodium 141 Potassium 4.0 Chloride 107 Carbon Dioxide 27 BUN 13 Creatinine 0.71 Glucose 95 Calcium 8.9 Cardiac Enzymes 10/10/17 10/10/17 Range/Units 05:14 11:03 Troponin I < 0.03 < 0.03 (< 0.04) ng/mL - ABG Interpretation ABG results: PT/INR, D-dimer PT 11.5 Seconds (9.4-12.1) 10/09/17 16:28 Consult Discharge Plan - Plan Referrals: Himanshu Rodrigues, IRON CUTTER [Primary Care Provider] -
[2017-10-10] MEDS: Mirtazapine 15 MG TABLET PO SCH (23:55)
[2017-10-11] MEDS: *HR* Heparin 5,000 UNIT/ML VIAL SQ SCH ×3 (05:45→20:44)
[2017-10-11] MEDS: Finasteride 5 MG TABLET PO SCH (09:25)
[2017-10-11] MEDS: Aspirin 81 MG TAB.CHEW PO SCH (09:25)
[2017-10-11] MEDS: Sennosides 8.6 MG TABLET PO SCH ×2 (09:27→20:44)
--- NOTE | 2017-10-11 13:39 | Internal Med Progress Note ---
Date of Encounter: 10/11/17 Time of Encounter: 12:45 - Assessment and plan (1) Anxiety Current Visit: Yes Status: Chronic Assessment and plan: Chronic. Continue home medications. Pt denies acute anxiety. (2) Squamous cell lung cancer Current Visit: Yes Status: Chronic Assessment and plan: RUL lung cancer. S/p lobectomy. Follows with oncology outpatient, Dr. Crouch. Qualifiers: Laterality: right Qualified Code(s): C34.91 - Malignant neoplasm of unspecified part of right bronchus or lung (3) Generalized weakness Current Visit: Yes Status: Acute Assessment and plan: Patient has been having generalized weakness for several weeks. Suspect that weakness is due to deconditioning and sedentary lifestyle since there is no alteration in labs, vitals, and EKG is WNL. PT/OT recommending SNF after discharge. Pt seems more agreeable to SNF today. Monitor for safety and falls. Walker in room, utilize when up. (4) Hypertension Current Visit: Yes Status: Acute Assessment and plan: Chronic. continue home medications. Monitor vs per admission order. Well controlled. Qualifiers: Hypertension type: unspecified Qualified Code(s): I10 - Essential (primary ) hypertension (5) PVCs (premature ventricular contractions) Current Visit: Yes Status: Acute Assessment and plan: In review of monitor, pt has NSR with occasional PVCs. Pt denies chest pain, SOB, palpitations. Rate is WNL, troponins negative x 3, TSH WNL. Likely not the cause for his weakness. continue telemetry replace electrolytes if needed (6) DVT prophylaxis Current Visit: Yes Status: Acute Assessment and plan: Heparin. Encourage ambulation with assistance and walker. - Time Spent With Patient Total time spent is greater than 50% in coordination of care (as documented) at patient's floor/unit and/or counseling patient: less than 15 minutes - Subjective Interval history: Pt was seen and assessed at bedside at 1245. He is alert, awake, he appears more alert and conversive . He denies headache, blurred vision, URI symptoms or ear pain, no chest pain or SOB. No n/v/d, or abdominal pain. Pt is up eating lunch with family friend at bedside. He states that his has been calling nursing homes to see which one he wants to go to. - Constitutional Vitals: Temp Pulse Resp BP Pulse Ox 97.7 F 53 18 112/72 96 10/11/17 11:15 10/11/17 11:15 10/11/17 11:15 10/11/17 11:15 10/11/17 11:15 General appearance: Present: cooperative, A&O X 3, pleasant, no acute distress, answers questions appropriately - Head Head exam: Present: atraumatic, normal inspection, normocephalic - Eye Eye exam: Present: normal appearance, conjuntiva pink, sclera anicteric - Neck Neck exam general surgery: Present: supple, trachea midline. Absent: lymphadenopathy, tenderness - Respiratory Respiratory exam: Present: CTAB. Absent: accessory muscle use, chest wall tenderness, decreased breath sounds, rales, respiratory distress, rhonchi, wheezes - Cardiovascular Cardiovascular exam: Present: RRR, +S1, +S2. Absent: diastolic murmur, gallop, rubs, systolic murmur - GI/Abdominal GI/Abdominal exam: Present: normal bowel sounds, soft. Absent: distended, tenderness - Extremities Exam Extremities exam: Present: normal capillary refill, warm, radial pulses palpable and symmetrical. Absent: calf tenderness, cyanotic, pedal edema, tenderness - Neurological Exam Neurological exam: Present: alert, oriented X3, no focal deficits. Absent: altered, facial droop, speech deficit - Skin Skin exam: Present: dry, intact, normal color, warm. Absent: rash Internal Medicine: Result - Labs CBC & Chem 7: 10/09/17 16:28 10/10/17 05:14 - ABG Interpretation ABG results: PT/INR, D-dimer PT 11.5 Seconds (9.4-12.1) 10/09/17 16:28 Consult Discharge Plan - Plan Referrals: Himanshu Rodrigues, CUSTOMIZER [Primary Care Provider] -
[2017-10-11] MEDS: Mirtazapine 15 MG TABLET PO SCH (20:44)
[2017-10-12] MEDS: *HR* Heparin 5,000 UNIT/ML VIAL SQ SCH ×3 (05:46→20:55)
[2017-10-12] MEDS: Sennosides 8.6 MG TABLET PO SCH ×2 (08:22→20:55)
[2017-10-12] MEDS: Finasteride 5 MG TABLET PO SCH (08:22)
[2017-10-12] MEDS: Aspirin 81 MG TAB.CHEW PO SCH (08:22)
[2017-10-12] MEDS ORDERED: hydroCHLOROthiazide 25 MG TABLET PO SCH (09:00)
--- NOTE | 2017-10-12 13:12 | Electrocardiograph Report ---
[address] [address] Test Date: 2017-10-09 Pat Name: Bubba Poe Department: 103 Room: 3B Gender: M Retail Sales Assistant: TMR : 1935 Requested By: Michael Maurer Order Number: [id number] Reading MD: Murali Lassiter Measurements Intervals [place] Rate: 78 P: 4 TN: 204 QRS: -34 QRSD: 145 T: 65 QT: 374 QTc: 407 Interpretive Statements SINUS RHYTHM MARKED LEFT AXIS DEVIATION BASELINE ARTIFACT INTRAVENTRICULAR CONDUCTION DELAY Electronically Signed On 10-12-2017 9:01:04 EDT by Murali Lassiter
--- NOTE | 2017-10-12 13:33 | Internal Med Progress Note ---
Date of Encounter: 10/12/17 Time of Encounter: 10:25 - Assessment and plan (1) Anxiety Current Visit: Yes Status: Chronic Assessment and plan: Chronic. Continue home medications. Xanax 0.25 mg by mouth daily as needed Remeron 30 mg by mouth daily at bedtime Paxil 30 mg by mouth daily (2) Squamous cell lung cancer Current Visit: Yes Status: Chronic Assessment and plan: RUL lung cancer. S/p lobectomy. Follows with [facility]. Follow after discharge. Qualifiers: Laterality: right Qualified Code(s): C34.91 - Malignant neoplasm of unspecified part of right bronchus or lung (3) Generalized weakness Current Visit: Yes Status: Acute Assessment and plan: Patient has been having generalized weakness for several weeks. Suspect that weakness is due to deconditioning and sedentary lifestyle since there is no alteration in labs, vitals, and EKG is WNL. PT/OT recommending SNF after discharge. Continue to monitor for safety and falls. Walker in room, utilize when up. Monitor labs and vital signs. (4) Hypertension Current Visit: Yes Status: Acute Assessment and plan: Chronic. Continue home medications. Blood pressure is well controlled. Monitor vitals per admission order. Qualifiers: Hypertension type: unspecified Qualified Code(s): I10 - Essential (primary ) hypertension (5) PVCs (premature ventricular contractions) Current Visit: Yes Status: Acute Assessment and plan: In review of monitor, pt has NSR with occasional PVCs. Pt denies chest pain, SOB, palpitations. Pt denies any symptoms. Rate still controlled, troponins negative x 3, TSH WNL. Likely not the cause for his weakness. Today, reports that his PCP told her that "he has a big heart and she wants to know if it is bigger." No prior cardiac history listed in list, pt denies. continue telemetry replace electrolytes if needed Echo ordered, pending. (6) DVT prophylaxis Current Visit: Yes Status: Acute Assessment and plan: Heparin. Pt has been up to chair, ambulates in room with assistance. Continue to encourage ambulation. - Time Spent With Patient Total time spent is greater than 50% in coordination of care (as documented) at patient's floor/unit and/or counseling patient: less than 15 minutes - Subjective Interval history: Pt was seen and assessed at bedside at 1025. He is alert, awake, he appears more alert and conversive, at bedside. He denies headache, blurred vision, no chest pain or SOB. No n/v/d, or abdominal pain. Pt denies palpitations. Pt awaiting placement in ECF, but is going to require level II review by [facility] of mental health. Pt and aware. - Constitutional Vitals: Temp Pulse Resp BP Pulse Ox 98.3 F 68 15 120/65 94 10/12/17 10:38 10/12/17 10:38 10/12/17 10:38 10/12/17 10:38 10/12/17 10:38 General appearance: Present: cooperative, A&O X 3, pleasant, no acute distress, answers questions appropriately - Head Head exam: Present: atraumatic, normal inspection, normocephalic - Eye Eye exam: Present: normal appearance, conjuntiva pink, sclera anicteric - Neck Neck exam general surgery: Present: supple, trachea midline. Absent: lymphadenopathy, tenderness - Respiratory Respiratory exam: Present: chest wall tenderness, CTAB. Absent: accessory muscle use, rales, respiratory distress, rhonchi, wheezes - Cardiovascular Cardiovascular exam: Present: RRR, +S1, +S2. Absent: diastolic murmur, gallop, rubs, systolic murmur - GI/Abdominal GI/Abdominal exam: Present: normal bowel sounds, soft. Absent: distended, hepatomegaly, tenderness - Extremities Exam Extremities exam: Present: normal capillary refill, normal inspection, warm, radial pulses palpable and symmetrical. Absent: calf tenderness, cyanotic, pedal edema, tenderness - Neurological Exam Neurological exam: Present: alert, oriented X3, no focal deficits. Absent: altered, facial droop, speech deficit - Skin Skin exam: Present: dry, intact, normal color, warm. Absent: rash Internal Medicine: Result - Labs CBC & Chem 7: 10/09/17 16:28 10/10/17 05:14 - ABG Interpretation ABG results: PT/INR, D-dimer PT 11.5 Seconds (9.4-12.1) 10/09/17 16:28 Consult Discharge Plan - Plan Referrals: Himanshu Rodrigues, DELIVERY REP [Primary Care Provider] -
[2017-10-12] MEDS: Mirtazapine 15 MG TABLET PO SCH (20:55)
[2017-10-13] MEDS: *HR* Heparin 5,000 UNIT/ML VIAL SQ SCH ×2 (06:18→15:59)
[2017-10-13 07:13] LABS: Basophils # 0.1 K/mcL (0.0-0.2); Basophils % 1.2 %; Eosinophils # 0.2 K/mcL (0.0-0.6); Eosinophils % 3.4 %; Hematocrit 37.2 % (37.5-50.1); Hemoglobin 12.9 g/dL (12.9-16.9); Immature Granulocytes % 0.4 % (0-4); Lymphocytes # 1.4 K/mcL (0.6-4.6); Lymphocytes % 27.5 %; Mean Corpuscular HGB Conc 34.7 g/dL (31.6-35.5); Mean Corpuscular Hemoglobin 33.5 pg (28.0-33.3); Mean Corpuscular Volume 96.6 fL (83.0-100.0); Mean Platelet Volume 9.8 fL (9.4-12.4); Monocytes # 0.4 K/mcL (0.0-1.3); Monocytes % 7.3 %; Platelet Count 168 K/mcL (140-400); Red Blood Count 3.85 M/mcL (4.19-5.50); Segmented Neutrophils % 60.2 %
[2017-10-13 07:42] LABS: BUN/Creatinine Ratio 21 (6-26); Blood Urea Nitrogen 15 mg/dL (8-23); Calcium 8.8 mg/dL (8.6-10.3); Carbon Dioxide 24 mEq/L (23-29); Chloride 107 mEq/L (98-107); Glucose 94 mg/dL (70-105); Osmolality,Calculated 291 (280-300); Potassium 3.4 mEq/L (3.5-5.1); Sodium 140 mEq/L (136-145); eGFR For African Americans > 60 (> 60); eGFR For Non-African Americans > 60 (> 60)
[2017-10-13] MEDS: Sennosides 8.6 MG TABLET PO SCH (09:05)
[2017-10-13] MEDS: Aspirin 81 MG TAB.CHEW PO SCH (09:05)
[2017-10-13] MEDS: Finasteride 5 MG TABLET PO SCH (09:05)
[2017-10-13] MEDS: Dorzolamide OPTH 10 ML BOTTLE BOTH EYES SCH ×2 (09:06→16:00)
--- NOTE | 2017-10-13 13:29 | Discharge Summary ---
Date of Encounter: 10/13/17 Time of Encounter: 13:34 - Discharge Diagnosis (1) Generalized weakness Priority: Primary Status: Acute Assessment and Plan: presented with generalized weakness for several weeks. Remained neurologically intact. Suspect secondary to deconditioning with advanced age and multiple comorbidities as well as sedentary lifestyle. Evaluated by PT/OT who recommended SNF. (2) Anxiety Priority: Primary Status: Chronic Assessment and Plan: per hx. Continue home Xanax, Remeron, Paxil (3) Squamous cell lung cancer Priority: Primary Status: Chronic Assessment and Plan: RUL lung cancer. S/p lobectomy. Follows with [facility]. Follow-up after discharge. Qualifiers: Laterality: right Qualified Code(s): C34.91 - Malignant neoplasm of unspecified part of right bronchus or lung (4) Hypertension Priority: Primary Status: Acute Assessment and Plan: per hx. BP controlled. Cont home BP medication. Monitor BP and titrate PRN Qualifiers: Hypertension type: unspecified Qualified Code(s): I10 - Essential (primary ) hypertension (5) PVCs (premature ventricular contractions) Priority: Primary Status: Acute Assessment and Plan: Incidental finding. EKG with NSR and occasional PVCs. Asymptomatic; denied chest pain, no shortness of breath or palpitations. Serial troponin negative. TSH within normal limits. TTE with EF 45%, mild diastolic dysfunction, mild aortic/mitral/tricuspid regurgitation. Recommend follow-up primary outpatient doorperson Hospital course: See assessment and plan for Hospital course Discharge discussed with: patient (Seen and examined at bedside. Information obtained from chart review and patient report. Patient says he is feeling better and is expected to be discharged to SNF today. No chest pain, no shortness of breath. Still with generalized weakness which is stable.) - Time Spent with Patient Total time spent providing and/or coordinating discharge services: - Discharge Medications Home Medications: Clopidogrel [Plavix] 75 mg PO DAILY 12/21/15 [History] Finasteride [Proscar] 5 mg PO DAILY 12/21/15 [History] Ketoconazole 2% CRM [Nizoral Cream] 1 appl TP BID PRN 12/21/15 [History] Multivit-Min/Folic/Vit K/Lycop [Hm Mens 50 Plus Adv One Daily] 1 each PO DAILY 12/21/15 [History] Omeprazole [PriLOSEC] 40 mg PO DAILY 12/21/15 [History] Pravastatin Sodium [Pravachol] 40 mg PO DAILY 12/21/15 [History] Mirtazapine [Remeron] 30 mg PO HS #30 tablet 12/22/15 [Rx] ALPRAZolam [Xanax 0.5 MG Tablet] 0.5 mg PO QAM 08/26/16 [History] Aripiprazole [Abilify] 5 mg PO DAILY 08/26/16 [History] Echinacea 760 mg PO BID PRN 08/26/16 [History] Ferrous Sulfate [Iron] 325 mg PO BID 08/26/16 [History] Nitroglycerin [Nitrostat] 0.4 mg SL PRN PRN 08/26/16 [History] Paroxetine [Paxil] 30 mg PO DAILY 08/26/16 [History] Sennosides [Senna] 8.6 mg PO BID 08/26/16 [History] Vit A/Vit C/Vit E/Zinc/Copper [Preservision Areds Tablet] 1 each PO BID [History] Aspirin 81 mg PO DAILY 11/20/16 [History] Docusate Sodium [Dok] 100 mg PO BID PRN 11/20/16 [History] Oxygen 2 each NS HS 11/20/16 [History] Hydrochlorothiazide [Microzide] 12.5 mg PO 3XW 04/28/17 [History] ALPRAZolam [Xanax 0.25 MG Tablet] 0.25 mg PO DAILY PRN 10/09/17 [History] Dorzolamide [Trusopt] 1 drop BOTH EYES TID 10/09/17 [History] Tamsulosin [Flomax] 0.4 mg PO DAILY 10/09/17 [History] Allergies/Adverse Reactions: 3 Allergy/AdvReac Type Severity Reaction Status Date / Time No Known Allergies Allergy Verified 10/09/17 16:23 Date of admission: 10/12/17 17:00 Primary care physician: Himanshu Rodrigues CNP Discharging clinician: Angela Henson Anticipated date of discharge: 10/13/17 - Constitutional Vitals: Temp Pulse Resp BP Pulse Ox 98.1 F 66 14 107/70 92 10/13/17 10:48 10/13/17 10:48 05/15/18 10:48 10/13/17 10:48 10/13/17 10:48 General appearance: Present: cooperative, A&O X 3, morbidly obese, pleasant, no acute distress, answers questions appropriately - Head Head exam: Present: atraumatic, normocephalic - Eye Eye exam: Present: PERRL, conjuntiva pink, sclera anicteric Pupils: Present: PERRL - Neck Neck exam general surgery: Present: supple, trachea midline. Absent: lymphadenopathy - Respiratory Respiratory exam: Present: CTAB. Absent: accessory muscle use, rales, rhonchi, wheezes - Cardiovascular Cardiovascular exam: Present: RRR, +S1, +S2. Absent: diastolic murmur, gallop, rubs, systolic murmur - GI/Abdominal GI/Abdominal exam: Present: normal bowel sounds, soft, no peritoneal signs. Absent: distended, tenderness - Extremities Exam Extremities exam: Present: warm, radial pulses palpable and symmetrical. Absent : calf tenderness, cyanotic, pedal edema - Neurological Exam Neurological exam: Present: CN II-XII intact, oriented X3, no focal deficits. Absent: pronater drift, facial droop, speech deficit - Skin Skin exam: Present: dry, intact - Patient Status Disposition: Transfer SNF Condition: Good Functional capacity at discharge: uses cane/walker Overall status at discharge: patient is progressing back to baseline - Discharge Instructions Follow Up With: Himanshu Rodrigues, [employer] [Primary Care Provider] - Forms: ED Satisfaction Letter - Diet and Activity Activity: as per physical therapy Diet: low fat, low cholesterol
--- NOTE | 2017-10-13 13:55 | Physician Discharge Referral ---
ExtendedCare Referral Info Transfer To: SNF Provider in Charge: Angela Henson CNP Provider in Charge after Transfer: PCP Institutional Level of Care: Skilled - Diagnosis (1) Generalized weakness Status: Acute (2) Anxiety Status: Chronic (3) Squamous cell lung cancer Status: Chronic (4) Hypertension Status: Acute (5) PVCs (premature ventricular contractions) Status: Acute - Transfer Medications Home Medications: Clopidogrel [Plavix] 75 mg PO DAILY 12/21/15 [History] Finasteride [Proscar] 5 mg PO DAILY 12/21/15 [History] Ketoconazole 2% CRM [Nizoral Cream] 1 appl TP BID PRN 12/21/15 [History] Multivit-Min/Folic/Vit K/Lycop [Hm Mens 50 Plus Adv One Daily] 1 each PO DAILY 12/21/15 [History] Omeprazole [PriLOSEC] 40 mg PO DAILY 12/21/15 [History] Pravastatin Sodium [Pravachol] 40 mg PO DAILY 12/21/15 [History] Mirtazapine [Remeron] 30 mg PO HS #30 tablet 12/22/15 [Rx] ALPRAZolam [Xanax 0.5 MG Tablet] 0.5 mg PO QAM 08/26/16 [History] Aripiprazole [Abilify] 5 mg PO DAILY 08/26/16 [History] Echinacea 760 mg PO BID PRN 08/26/16 [History] Ferrous Sulfate [Iron] 325 mg PO BID 08/26/16 [History] Nitroglycerin [Nitrostat] 0.4 mg SL PRN PRN 08/26/16 [History] Paroxetine [Paxil] 30 mg PO DAILY 08/26/16 [History] Sennosides [Senna] 8.6 mg PO BID 08/26/16 [History] Vit A/Vit C/Vit E/Zinc/Copper [Preservision Areds Tablet] 1 each PO BID [History] Aspirin 81 mg PO DAILY 11/20/16 [History] Docusate Sodium [Dok] 100 mg PO BID PRN 11/20/16 [History] Oxygen 2 each NS HS 11/20/16 [History] Hydrochlorothiazide [Microzide] 12.5 mg PO 3XW 04/28/17 [History] ALPRAZolam [Xanax 0.25 MG Tablet] 0.25 mg PO DAILY PRN 10/09/17 [History] Dorzolamide [Trusopt] 1 drop BOTH EYES TID 10/09/17 [History] Tamsulosin [Flomax] 0.4 mg PO DAILY 10/09/17 [History] Allergies/Adverse Reactions: 3 Allergy/AdvReac Type Severity Reaction Status Date / Time No Known Allergies Allergy Verified 10/09/17 16:23 - Respiratory Orders None Smoking Cessation: Smoking cessation has been advised. For more information, call the [place] Tobacco Quit Line at 1-724-CKWN-NOW. - Advance Directives Code Status: Full Code - Rehabiliation Orders Rehab Potential: Good - Diet Orders Cardiac CERTIFICATION: I certify that the transfer of the above named patient to an Extended Care Facility is necessary for the continuing treatment of the diagnosis listed. The above information is true and accurate reflection of patient's current condition. Confidential - Redisclosure prohibited without a patient's written consent.
[2017-10-13 15:35] VITALS: BP 103/64
== END 2017-10-13 17:05 | DRG 948 ==
LOC: 3BNU 16:18 → EMEROO 16:18 → 3BNU 21:24
PROVIDERS: ADMIT Pediatrics; ATTEND Pediatrics